=== PATIENT | male | born 1970 | race American Indian/Alaskan Native ===

== ENCOUNTER 2019-10-18 16:38 | Emergency (ER) | payer OTHER ==
[2019-10-18] MEDS ORDERED: IBUPROFEN 600 MG TAB PO ONE (20:18)
[2019-10-18] MEDS ORDERED: ACETAMINOPHEN 325 MG TAB PO ONE (20:18)
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
[2019-10-18 22:23] VITALS: BP 153/87
== END 2019-10-18 21:27 | disposition home or self-care (01) ==
LOC: ED 16:38
DX: M25.512 Pain in left shoulder (principal); M54.2 Cervicalgia; Z79.899 Other long term (current) drug therapy; V49.49XA Driver injured in collision with other motor vehicles in traffic accident, initial encounter; Y93.89 Activity, other specified; Y92.410 Unspecified street and highway as the place of occurrence of the external cause; Y99.8 Other external cause status